=== PATIENT | female | born 1975 | race African-American/Black ===

== ENCOUNTER → 2016-08-07 | Outpatient (CLI) | payer OTHER ==
[2016-05-23 14:52] VITALS: BP 146/80
[~2016-08-07] MED LIST: ALPR0.254 PO; BUPR1PAT2 TP; DICL50TA4 PO; DIPH25CA58 PO; FAMC500T2 PO; FLUT1DIS3 IH; HYDR-971 PO; IPRA4AER IH; LISI1TAB5 PO; OMEP40CA5 PO; ONDA4TAB7 PO; PREG100C PO; PROP40TA PO; TRAM50TA PO; ZOLP10TA4 PO
--- NOTE | 2016-08-07 11:16 | KCIC ---
PROCEDURE Thoracic spine radiographs HISTORY Mid thoracic back pain for 2-3 weeks after a fall COMPARISON June 07, 2016 two-view chest, no previous similar radiographs FINDINGS Three views of the thoracic spine are submitted. Thoracic vertebral body stature and AP alignment are maintained. There is very mild smooth thoracic dextroscoliosis. No displaced acute fracture is identified by radiographs. IMPRESSION No acute osseous abnormality is identified by radiographs. Electronically signed by: Artie Layton MD (Aug 07, 2016 11:14:46)
== END | disposition home or self-care (01) ==
LOC: KCIC 10:36
PROVIDERS: ATTEND Family Medicine
DX: M54.9 Dorsalgia, unspecified (principal); M54.6 Pain in thoracic spine
CPT/HCPCS: 72072

== ENCOUNTER → 2017-01-16 | Outpatient (CLI) | payer OTHER ==
[2016-05-23 14:52] VITALS: BP 146/80
[~2017-01-16] MED LIST changes: -BUPR1PAT2 TP; +BUPR1PAT8 TP
--- NOTE | 2017-01-16 13:10 | KCIC ---
EXAM: Left knee, 3 views. HISTORY: Pain. COMPARISON: None. FINDINGS: Frontal, lateral and oblique views of the left knee are obtained. There is no fracture, dislocation or subluxation. No effusion is seen. There is minimal patellar spurring. IMPRESSION: 1. Minimal patellofemoral compartment osteoarthritis. 2. No acute osseous finding. Electronically signed by: Awilda Zapien MD (01/16/2017 1:07 PM) [facility]
== END | disposition home or self-care (01) ==
LOC: KCIC 12:36
PROVIDERS: ATTEND Nurse Practitioner Family
DX: M17.12 Unilateral primary osteoarthritis, left knee (principal)
CPT/HCPCS: 73562

== ENCOUNTER 2017-06-20 22:45 | Emergency (ER) | payer OTHER ==
[2017-06-20 23:44] LABS: INFLUENZA A PATIENT NEGATIVE (NEGATIVE)
[2017-06-20 23:45] LABS: INFLUENZA B PATIENT POSITIVE (NEGATIVE); OBC FLU VALID
[2017-06-21 11:07] LABS: NEGATIVE OBC STREP NEG; POSITIVE OBC STREP POS
== END 2017-06-21 00:17 | disposition home or self-care (01) ==
LOC: ER 06-21 00:17
DX: J10.1 Influenza due to other identified influenza virus with other respiratory manifestations (principal); M19.90 Unspecified osteoarthritis, unspecified site; J45.909 Unspecified asthma, uncomplicated; F32.9 Major depressive disorder, single episode, unspecified; I10 Essential (primary) hypertension; G43.909 Migraine, unspecified, not intractable, without status migrainosus; Z90.710 Acquired absence of both cervix and uterus; Z98.51 Tubal ligation status; Z79.899 Other long term (current) drug therapy; Z88.0 Allergy status to penicillin; Z88.8 Allergy status to other drugs, medicaments and biological substances; Z88.2 Allergy status to sulfonamides; Z88.1 Allergy status to other antibiotic agents
CPT/HCPCS: 71046; 87070; 87804; 87804-59; 87880; 99285-25

== ENCOUNTER → 2017-10-27 | Outpatient (CLI) | payer OTHER | END | disposition home or self-care (01) | LOC: KCIC US 10:48 | DX: N28.1 Cyst of kidney, acquired (principal) | CPT/HCPCS: 76700 ==

== ENCOUNTER → 2018-10-22 | Outpatient (CLI) | payer OTHER ==
[2017-06-20 23:03] VITALS: BP 136/72
[~2018-10-22] MED LIST changes: +HYDR-3164 PO; -HYDR-971 PO
--- NOTE | 2018-10-22 16:07 | KCIC ---
2-view left foot dated 10/22/2018. No comparison available. CLINICAL INDICATION: Medial foot pain for months. No known injury. FINDINGS: 2 views of left foot show normal bony alignment. No displaced fracture. No acute osseous or articular abnormality. There is a prominent calcaneal spur. IMPRESSION: No acute radiographic abnormality. Electronically signed by: Juan Chang MD (10/22/2018 4:04 PM) [facility]
== END | disposition home or self-care (01) ==
LOC: KCIC 15:17
PROVIDERS: ATTEND Family Medicine
DX: M77.32 Calcaneal spur, left foot (principal)
CPT/HCPCS: 73620

== ENCOUNTER 2019-02-14 22:59 | Emergency (ER) | payer MEDICAID, OTHER ==
[~2019-02-14] VITALS: Ht 157.5 cm; Wt 108.9 kg
[~2019-02-14 22:59] MED LIST changes: +LISI1TAB19 PO; -LISI1TAB5 PO
[2019-02-14 23:06] VITALS: BP 154/88
[2019-02-15] MEDS ORDERED: CHLO15MO2 SWSP (00:23)
--- NOTE | 2019-02-15 00:24 | PHYS DOC ---
Past Medical History Past Medical History: Arthritis, Asthma, Depression, Hypertension, Migraines, Other Additional Past Medical Histor: enlarged uterus, ALLERGIES Past Surgical History: , Hysterectomy, Tubal ligation, Other Additional Past Surgical Histo: D&C, ROTATOR CUFF Alcohol Use: Occasionally Drug Use: None Adult General Chief Complaint Chief Complaint: OTHER COMPLAINTS [facility] HPI Patient is a 43 year old AA female who presents to the emergency department with complaints of sores in her mouth for the last week after eating some spicy barbecue. She denies any fever, cough, shortness of breath, nausea, vomiting, diarrhea, or abdominal pain. Patient also complains of pain in her right proximal calf after walking a significant distance today. She denies any known injury to her right knee or leg. Currently the pain in her legs and mouth is a 5 out of 10 on the pain scale. She states the pain in her mouth is exacerbated when she drinks carbonated beverages or eats spicy or acidic foods. She states that the pain in her calf increases when it is touched her pressure is applied. Patient states she has a history of the right knee meniscus repair 2 years ago and has had some popping of her knee since then but denies any recent injury or popping. Review of Systems Review of Systems Constitutional: Denies fever or chills [] Eyes: Denies change in visual acuity, redness, or eye pain [] HENT: Denies nasal congestion or sore throat ; see history of present illness[] Respiratory: Denies cough or shortness of breath [] Cardiovascular: No additional information not addressed in HPI [] GI: Denies abdominal pain, nausea, or vomiting Musculoskeletal: Denies back pain or joint pain; see history of present illness[] Integument: Denies rash; see history of present illness Neurologic: Denies headache, focal weakness or sensory changes [] Complete systems were reviewed and found to be within normal limits, except as documented in this note. Allergies Allergies Allergies Coded Allergies Type Severity Reaction Last Updated Verified Penicillins Allergy Intermediate rash 05/23/16 Yes Sulfa (Sulfonamide Antibiotics) Allergy Intermediate rash 05/23/16 Yes cephalexin Allergy Intermediate rash 05/23/16 Yes nitrofurantoin Allergy Intermediate rash 05/23/16 Yes Physical Exam Physical Exam Constitutional: Well developed, well nourished, no acute distress, non-toxic appearance, obese. [] HENT: Normocephalic, atraumatic, bilateral external ears normal, oropharynx moist, no oral exudates, nose normal; apthous ulcers noted to bilateral posterior lower gingiva. [] Eyes: PERRLA, EOMI, conjunctiva normal, no discharge. [] Neck: Normal range of motion, no tenderness, supple, no stridor. [] Cardiovascular:Heart rate regular rhythm, no murmur [] Lungs & Thorax: Bilateral breath sounds clear to auscultation [] Skin: Warm, dry, no erythema, no rash. [] Back: No tenderness Extremities: No bony tenderness, no cyanosis, no clubbing, ROM intact, no edema; proximal right medial calf tenderness with varicose veins noted, no bruising, no swelling, no warmth, RLE pulses 2+ [] Neurologic: Alert and oriented X 3, normal motor function, normal sensory function, no focal deficits noted. [] Psychologic: Affect normal, judgement normal, mood normal. [] Current Patient Data Vital Signs Vital Signs Date Time Temp Pulse Resp B/P (MAP) Pulse Ox O2 Delivery O2 Flow Rate FiO2 02/14/19 23:06 98.2 82 18 154/88 (110) 97 Room Air 98.2 EKG EKG [] Radiology/Procedures Radiology/Procedures PROCEDURE: VENOUS LOWER EXTREMITY RIGHT Exam: VENOUS LOWER EXTREMITY RIGHT Indication: Calf and knee pain Technique: Color-flow and pulsed wave duplex ultrasound with compression of venous structures of the right lower extremity. Comparison: None Available. Findings: Duplex ultrasound with compression of the deep venous structures of the right lower extremity from the common femoral vein through the popliteal vein is negative for DVT. The posterior tibial and peroneal veins are segmentally visualized and patent where seen. Normal venous waveforms and augmentation are noted throughout. No focal abnormality identified along the medial knee within the region of concern indicated by the patient. Impression: No evidence for DVT in the right lower extremity. No focal abnormality identified along the medial knee within the region of concern indicated by the patient. Course & Med Decision Making Course & Med Decision Making Pertinent Labs and Imaging studies reviewed. (See chart for details) dx: apthous ulcers of mouth, right calf pain U/S of right leg negative for blood clot. Peridex prescribed for treatment of apthous ulcers, pt encouraged to avoid ac etic, carbonated, or spicy foods until ulcers are healed. Discussed concerns of intermittent R knee pain and R knee popping with pt. PT denies any recent injury or fall. Recommend pt follow up with her orthopedic doctor for chronic knee pain, pt agreed that no imaging was necessary at this time and there is no swelling, or injury at this time. Patient verbalized an understanding of home care, medications, follow-up, and return to ED instructions and was in agreement with the plan of care. [] Dragon Disclaimer Dragon Disclaimer This electronic medical record was generated, in whole or in part, using a voice recognition dictation system. Departure Departure Impression: Primary Impression: Aphthous ulcer of mouth Additional Impression: Right calf pain Disposition: HOME, SELF-CARE Condition: STABLE Referrals: DONELL PARADA APRN (PCP) Patient Instructions: Knee Pain, [id number], Oral Ulcers Additional Instructions: Fill the prescription and use as directed, be sure to brush teeth before using this medication as it may stain your teeth. Apply warm moist heat to sore area on calf. Take tylenol or ibuprofen as needed for pain. Follow up with your orthopedic doctor for further evaluation if symptoms persist, return to the ER if symptoms worsen. Scripts Chlorhexidine Gluconate (PERIDEX) 15 Ml Mouthwash 15-30 ML SWSP TID for 7 Days, #473 ML 0 Refills Prov: GIANNI GOODWIN APRN 02/15/19 Problem Qualifiers GIANNI GOODWIN APRN Feb 15, 2019 00:24
--- NOTE | 2019-02-15 00:42 | RAD ---
Exam: VENOUS LOWER EXTREMITY RIGHT Indication: Calf and knee pain Technique: Color-flow and pulsed wave duplex ultrasound with compression of venous structures of the right lower extremity. Comparison: None Available. Findings: Duplex ultrasound with compression of the deep venous structures of the right lower extremity from the common femoral vein through the popliteal vein is negative for DVT. The posterior tibial and peroneal veins are segmentally visualized and patent where seen. Normal venous waveforms and augmentation are noted throughout. No focal abnormality identified along the medial knee within the region of concern indicated by the patient. Impression: No evidence for DVT in the right lower extremity. No focal abnormality identified along the medial knee within the region of concern indicated by the patient. Electronically signed by: Rosales Auguste MD (02/15/2019 12:39 AM) [facility]
== END 2019-02-15 00:35 | disposition home or self-care (01) ==
LOC: ER 22:59
DX: M79.661 Pain in right lower leg (principal); M25.561 Pain in right knee; K12.0 Recurrent oral aphthae; M19.90 Unspecified osteoarthritis, unspecified site; J45.909 Unspecified asthma, uncomplicated; I10 Essential (primary) hypertension; G43.909 Migraine, unspecified, not intractable, without status migrainosus; Z98.890 Other specified postprocedural states; Z90.710 Acquired absence of both cervix and uterus; Z98.51 Tubal ligation status; Z88.0 Allergy status to penicillin; Z88.2 Allergy status to sulfonamides; Z88.1 Allergy status to other antibiotic agents; Z88.8 Allergy status to other drugs, medicaments and biological substances
CPT/HCPCS: 93971; 99284

== ENCOUNTER 2020-04-14 09:07 | Emergency (ER) | payer SELFPAY ==
[~2020-04-14] VITALS: Ht 154.9 cm; Wt 110.0 kg
[~2020-04-14 09:07] MED LIST changes: +CHLO15MO2 SWSP; -LISI1TAB19 PO; +LISI1TAB37 PO; +OMEP40CA45 PO; -OMEP40CA5 PO
[2020-04-14 09:49] VITALS: BP 168/94
[2020-04-14] MEDS ORDERED: KETOROLAC 60 MG/2 ML VIAL. IM ONE (10:00)
[2020-04-14] MEDS ORDERED: KETOROLAC 30 MG/ML VIAL. IVP ONE (10:30)
--- NOTE | 2020-04-14 10:35 | RAD ---
EXAM: Chest, 2 views. HISTORY: Chest pain. COMPARISON: 06/20/2017 FINDINGS: 2 views of the chest are obtained. There is right lower lobe interstitial infiltrate. There is no consolidation, pleural effusion or pneumothorax. The heart is normal in size. IMPRESSION: Right lower lobe infiltrate. Follow-up to confirm resolution. Electronically signed by: Awilda Zapien MD (04/14/2020 10:32 AM) [id number]
[2020-04-14] MEDS ORDERED: AMOX1TAB61 PO (11:32)
--- NOTE | 2020-04-14 11:33 | ED.ADGEN ---
Past Medical History Past Medical History: Anxiety, Arthritis, Asthma, Depression, Hypertension, Migraines, Other Additional Past Medical Histor: ALLERGIES,CHRONIC PAIN,SHINGLES Past Surgical History: , Hysterectomy, Tubal ligation, Other Additional Past Surgical Histo: D&C, ROTATOR CUFF Smoking Status: Never Smoker Alcohol Use: Occasionally Drug Use: None General Adult EDM: Chief Complaint: CHEST WALL PAIN HPI: HPI: Patient is a 44-year-old female who presents to the emergency room complaining of sharp right-sided chest pains that started this morning at 730. She states it is worse with movement or breathing. She denies any cough, fever, shortness of breath. She has had similar symptoms one prior time when she had costochondritis. She states at that time she was having a lot of cough. She denies any abdominal symptoms. She does not have any headache or URI symptoms. Review of Systems: Review of Systems: Complete ROS is negative unless otherwise documented in HPI Current Medications: Current Medications Medications (Trade) Dose Ordered Sig/Samantha Start Time Stop Time Status Last Admin Dose Admin Ketorolac Tromethamine (Toradol 30mg Vial) 30 mg 1X ONCE 04/14/20 10:30 04/14/20 10:31 DC 04/14/20 10:32 30 MG Ketorolac Tromethamine (Toradol Im) 60 mg 1X ONCE 04/14/20 10:00 04/14/20 10:18 DC Allergies: Allergies: Allergies Coded Allergies Type Severity Reaction Last Updated Verified Penicillins Allergy Intermediate rash 05/23/16 Yes Sulfa (Sulfonamide Antibiotics) Allergy Intermediate rash 05/23/16 Yes cephalexin Allergy Intermediate rash 05/23/16 Yes nitrofurantoin Allergy Intermediate rash 05/23/16 Yes Physical Exam: PE: General: Awake, alert, NAD. Well Nourished, well hydrated. Cooperative HEENT: Atraumatic, EOMI, PERRL, airway patent, moist oral mucosa Neck: Supple, trachea midline Respiratory: CTA bilaterally, normal effort, no wheezing/crackles CV: RRR, no murmur, cap refill <2 GI: Soft, nondistended, nontender, no masses MSK: No obvious deformities Skin: Warm, dry, intact Neuro: A&O x3, speech NL, sensory and motor grossly intact, no focal deficits Psych: Normal affect, normal mood, not suicidal or homicidal Current Patient Data: Vital Signs: Vital Signs Date Time Temp Pulse Resp B/P (MAP) Pulse Ox O2 Delivery O2 Flow Rate FiO2 04/14/20 09:49 57 18 168/94 (118) 97 Room Air 04/14/20 09:12 98.6 98.6 EKG: EKG: [] Heart Score: Risk Factors: Risk Factors: DM, Current or recent (<one month) smoker, HTN, HLP, family history of CAD, obesity. Risk Scores: Score 0 - 3: 2.5% MACE over next 6 weeks - Discharge Home Score 4 - 6: 20.3% MACE over next 6 weeks - Admit for Clinical Observation Score 7 - 10: 72.7% MACE over next 6 weeks - Early Invasive Strategies Radiology/Procedures: Radiology/Procedures: [] Course & Med Decision Making: Course & Med Decision Making Pertinent Labs and Imaging studies reviewed. (See chart for details) Patient is a 44-year-old female who presents to the emergency room complaining of atypical right-sided chest pain. At this time there is no concern for cardiac pathology. EKG is normal and does not show any signs of arrhythmia or ischemia. Chest x-ray shows a right-sided infiltrate which is likely the cause of her pain. We will place her on antibiotics. I have discussed with her that she needs a repeat x-ray in 2 to 4 weeks. She can follow-up with her primary care physician for this. We discussed using NSAIDs at home for pain. We discussed that if she develops fever, shortness of breath, chest pain she should return to the emergency room. Patient's test results and vitals while in the ED were fully reviewed and discussed with the patient. Patient is stable and at this time does not need admission to the hospital. We have discussed strict return precautions and the importance of following up with their Primary Care Physician. Patient stated understanding and was given an opportunity to ask any questions. Patient is in agreement with plan. Mirna Disclaimer: Mirna Disclaimer: This electronic medical record was generated, in whole or in part, using a voice recognition dictation system. Departure Departure Impression: Primary Impression: Costochondritis, acute Additional Impression: Pneumonia Disposition: 01 DC HOME SELF CARE/HOMELESS Condition: STABLE Referrals: DONELL PARADA APRN (PCP) Patient Instructions: Pneumonia, Adult Scripts Amoxicillin/Potassium Clav (AUGMENTIN 875-125 TABLET) 1 Each Tablet 1 TAB PO Q12HR, #20 TAB Prov: MARIBELL CAGLE MD 04/14/20 Problem Qualifiers MARIBELL CAGLE MD Apr 14, 2020 11:33
--- NOTE | 2020-04-14 12:36 | EKG ---
[facility] [address] [place] [address] Test Date: 2020-04-14 Test Time: 09:18:16 Pat Name: MARLEEN ORTEGA Department: Room: Gender: [employer] Consultant: : [id number] Requested By: MARIBELL CAGLE Order Number: [id number] Reading MD: Derrek Bo Measurements Intervals [place] Rate: 56 P: 31 TX: 152 QRS: 18 QRSD: 86 T: 59 QT: 438 QTc: 425 Interpretive Statements SINUS RHYTHM Electronically Signed On 04-14-2020 18:25:58 ELECTRONIC EQUIPMENT SET UP OPERATOR by Derrek Bo
== END 2020-04-14 11:45 | disposition home or self-care (01) ==
LOC: ER 09:07
DX: M94.0 Chondrocostal junction syndrome [Tietze] (principal); J18.9 Pneumonia, unspecified organism; R07.89 Other chest pain; M19.90 Unspecified osteoarthritis, unspecified site; F41.9 Anxiety disorder, unspecified; J45.909 Unspecified asthma, uncomplicated; F32.9 Major depressive disorder, single episode, unspecified; I10 Essential (primary) hypertension; G43.909 Migraine, unspecified, not intractable, without status migrainosus; G89.29 Other chronic pain; Z90.710 Acquired absence of both cervix and uterus; Z98.51 Tubal ligation status; Z98.890 Other specified postprocedural states; Z88.0 Allergy status to penicillin; Z88.2 Allergy status to sulfonamides; Z88.8 Allergy status to other drugs, medicaments and biological substances
CPT/HCPCS: 71046; 93005; 96374; 99283; J1885

== ENCOUNTER → 2021-02-01 | Outpatient (CLI) | payer OTHER ==
[~2021-02-01] MED LIST changes: +AMOX1TAB61 PO; -OMEP40CA45 PO; +OMEP40CA7 PO
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
== END ==
LOC: KCIC 14:59
PROVIDERS: ATTEND Nurse Practitioner Family
DX: M25.512 Pain in left shoulder (principal)
CPT/HCPCS: 73030